=== PATIENT | male | born 1995 | race African-American/Black ===

== ENCOUNTER 2016-12-20 03:04 | Emergency (ER) | payer BC ==
[~2016-12-20] VITALS: Ht 180.3 cm; Wt 69.2 kg
[2016-12-20 03:13] VITALS: TEMP 36.5; Ht 180.3 cm; Wt 69.2 kg
[2016-12-20] MEDS ORDERED: KETOROLAC TROMETHAMINE 60 MG/2 ML VIAL IM STA (03:22)
[2016-12-20] MEDS ORDERED: HYDROCODONE/ACETAMOPHEN 5/325MG TAB PO ONE (03:30)
[2016-12-20 04:30] VITALS: BP 125/73; PULSE 89; O2SAT 96
--- NOTE | 2016-12-20 05:15 | EMERGENCY ROOM VISIT NOTE ---
History First contact with patient: :17 Chief Complaint: BACK PAIN Stated Complaint: LT LOWER BACK PAIN,RIGHT KNEE PAIN History of Present Illness The patient is a 21 year old male who presents to the Emergency Room with complaints of low back pain for the past one hour. The patient states that he was meeting up with his friends, and was running to greet them, when he slipped , fell, and landed onto his back. The patient was able to ambulate following his injury. He does not have numbness or paresthesias. No loss of bowel or bladder control. The patient does not have chronic back pain. He does have some reported discomfort when he moves his right leg. He did not strike his head or lose consciousness. He has not taken anything [id number] for his discomfort. He rates his discomfort a 7/10. Review of Systems More than 10 systems were reviewed and otherwise negative with the exception of history of present illness. Past Medical/Surgical History No chronic medical disease Family History No pertinent family history Social History Smoking Status: Never Smoker Current/Historical Medications No Active Prescriptions or Reported Meds Allergies Coded Allergies: No Known Allergies (Unverified , 12/20/16) Physical Exam Vital Signs Date Time Temp Pulse Resp B/P (MAP) Pulse Ox O2 Delivery O2 Flow Rate FiO2 12/20/16 04:30 89 16 125/73 96 12/20/16 03:13 36.5 90 18 104/56 100 Room Air Pain Rating (0-10): 5.0 Physical Exam VITALS: Vitals are noted on the nurse's note and reviewed by myself. Vital signs stable. GENERAL: Well-developed, well-nourished, black male who is mildly a comfortable secondary to his stated complaint. Patient is cooperative with the examination. HEAD: Normocephalic atraumatic. EARS: External ear normal. External auditory canals clear, tympanic membranes pearly zuleta without erythema or effusion bilaterally. No hemotympanum EYES: Pupils equal round and reactive to light and accommodation. Conjunctivae without injection, sclerae without icterus. Extraocular movements intact. No hyphema NOSE: Patent, turbinates without inflammation or discharge. No epistaxis MOUTH: Mucous membranes moist. Tonsils are not enlarged. Pharynx without erythema, blood, or exudate. Uvula midline. Airway patent. Dentition in good repair NECK: Supple without nuchal rigidity. No lymphadenopathy. No thyromegaly. Cervical spine is nontender. HEART: Regular rate and rhythm without murmurs gallops or rubs. LUNGS: Clear to auscultation bilaterally without wheezes, rales or rhonchi. No retractions or accessory muscle use. ABDOMEN: Positive normal bowel sounds x 4. Soft, nontender, without masses or organomegaly. No guarding or rebound tenderness. MUSCULOSKELETAL: No gross deformity throughout the extremities. The patient is tender throughout the lower lumbar spine. No saddle paresthesias. Negative straight leg raise. NEURO: Patient was alert and oriented to person place and time. CN II through XII grossly intact. Deep tendon reflexes 2+ throughout. Medical Decision & Procedures ER Provider Diagnostic Interpretation: Preliminary Findings Only See Final Report For Complete Findings CT L SPINE: No acute fracture or subluxation. Transitional lumbosacral anatomy. Medications Administered Medications (Trade) Dose Ordered Sig/Bravo Route Start Time Stop Time Status Last Admin Dose Admin Ketorolac Tromethamine (Toradol Inj) 60 mg NOW STAT IM 12/20/16 03:22 12/20/16 03:23 DC 12/20/16 03:26 60 MG Acetaminophen/ Hydrocodone Bitart ([place] 5/325 Tab) 1 tab NOW ONCE PO 12/20/16 03:30 12/20/16 03:31 DC 12/20/16 03:26 1 TAB ED Course Physical exam and history were performed. Nursing notes and EMR were reviewed. Patient appears to have low back pain after falling earlier tonight. The patient does have tenderness of the lower lumbar spine. He does not have obvious injury otherwise. He was treated here in the department with oral Vicodin and [address] scan of the L-spine was performed and does not show evidence of fracture or subluxation. Overall the patient had improvement of his symptoms after analgesics. I discussed options of care with the patient, and did offer additional pain medication. The patient declined this and felt well for discharge home. He rated his discomfort a 5/10 at the time of his departure and was asked to follow with his primary care physician with any new, worsening, or concerning symptoms. The chart was completed utilizing [employer] Voice [employer]ognition Software. Grammatical errors, random word insertions, pronoun errors, and incomplete sentences are an occasional consequence of this system due to software limitations, ambient noise, and hardware issues. Any formal questions or concerns about the content, text, or information contained within the body of this dictation should be directly addressed to the provider for clarification. . Medical Decision Differential diagnosis: Etiologies such as musculoskeletal, disc herniation, fracture, aortic disease, metastatic disease, cord compression, discitis, infection, renal colic, gastrointestinal, acute exacerbation of chronic back pain, sciatica, cauda equina, as well as others were entertained. Impression Primary Impression: Fall Additional Impression: Low back pain Departure Information Dispostion Home / Self-Care Condition GOOD Prescriptions No Active Prescriptions or Reported Meds Forms HOME CARE DOCUMENTATION FORM, IMPORTANT VISIT INFORMATION Patient Instructions [facility] Additional Instructions You were seen and evaluated today on an emergency basis only. This is not a substitute for, or an effort to provide, complete comprehensive medical care. It is not possible to recognize and treat all injuries or illnesses in a single emergency department visit. For this reason it is recommended that you followup with your primary care physician with any ongoing or persistent symptoms. For baseline pain relief you may alternate ibuprofen and acetaminophen every 4 hours for pain control. Take 600 mg ibuprofen (Advil) and then 4 hours later take 1000 mg acetaminophen (Tylenol). Do not take more than 3000 mg acetaminophen in a single day. You are welcome to return to the emergency department anytime with new, worsening, or concerning symptoms. Problem Qualifiers
--- NOTE | 2016-12-20 06:56 | DIAGNOSTIC IMAGING REPORT ---
LUMBAR SPINE CT CT DOSE: 444.74 mGy.cm HISTORY: Fall. Low back injury TECHNIQUE: Multiaxial CT images of the lumbar spine were performed and reformatted in the sagittal and coronal plane without the use of contrast. COMPARISON: None. FINDINGS: No fractures. No subluxation. Paraspinal soft tissues are unremarkable. S1 is demonstrated to be a transitional vertebra with lumbarization on the right and pseudarthrosis within the left transverse process with the sacrum the sacrum appears intact.. IMPRESSION: No fractures within the lumbar spine. Electronically signed by: Miquel Gaytan M.D. 12/20/2016 6:55 AM Dictated Date/Time: 12/20/2016 6:52 AM
== END 2016-12-20 04:40 | disposition home or self-care (01) ==
LOC: C.EDB 03:06 → C.EDA 04:40
DX: M54.5 Low back pain (principal); W01.0XXA Fall on same level from slipping, tripping and stumbling without subsequent striking against object, initial encounter